=== PATIENT | female | born 1990 | race Caucasian/White ===

== ENCOUNTER 2023-10-23 08:45 | Emergency (ER) | payer BC, SELFPAY ==
[2023-10-23 08:47] VITALS: BP 118/83
--- NOTE | 2023-10-23 09:18 | ED.GENMED ---
History of Present Illness
<Chantal Verdugo PA-C - Last Filed: 10/23/23 11:40>
General
Chief Complaint: Dehydration Symptoms
Source: patient and significant other
Time Seen by Provider: 10/23/23 09:00
History of Present Illness
History of Present Illness:
32yoF with a history of hypothyroidism presenting with her for evaluation of vomiting and diarrhea. Symptoms started last night around midnight. 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 She started to feel unwell at the end of her shift and started vomiting after returning home. She has had persistent vomiting and diarrhea since last night. She estimates that she has vomited about 10x since her symptoms
began. She also reports abdominal cramping but denies any overt abdominal pain. She also reports feeling dehydrated including decreased urine output and muscle cramping. She believes she has food poisoning. She has not taken anything OTC for her
symptoms. She denies any fevers, hematemesis, hematochezia, chest pain, shortness of breath.
Review of Systems
<Chantal Verdugo PA-C - Last Filed: 10/23/23 11:40>
Review of Systems
Constitutional: Denies fever
Respiratory: Denies trouble breathing
Cardiac: Denies chest pain
ABD/GI: Reports nausea, vomiting and diarrhea
: Reports dark urine
Phy Exam
<Chantal Verdugo PA-C - Last Filed: 10/23/23 11:40>
General Physical Exam
General Presentation: well appearing and no apparent distress
General Skin: warm and dry
Cardiovascular Exam
Cardiovascular Exam: regular rate/rhythm
Pulmonary Exam
Pulmonary Exam: lungs clear and no respiratory distress
Gastrointestinal Exam
Gastrointestinal Exam: soft and tender (Mild epigastric tenderness. No guarding, rebound, or rigidity. )
Goodwin Coma Scale
Eye Opening: Spontaneous
Verbal Response: Oriented
Motor Response: Obeys Commands
GCS Total Score: 15
<Kendall Eagle MD - Last Filed: 10/23/23 09:56>
Kacey Coma Scale
GCS Total Score: 15
Course
<Chantal Verdugo PA-C - Last Filed: 10/23/23 11:40>
Orders/Labs/Results
Orders:
Orders
10/23/23 09:15
Famotidine [Pepcid] 20 mg IV NOW STA
Ondansetron Injectable [Zofran] 4 mg IV NOW STA
10/23/23 09:16
Test Result ONCE
10/23/23 09:17
0.9% Sodium Chloride 500 ml [Nss] 500 ml IV BOLUS
10/23/23 09:23
Basic Metabolic Panel Urgent
Complete Blood Count/With Diff Urgent
HCG, Urine Qualitative Screen Urgent
Date Specimen was Collected: 10/23/23
Time Specimen was Collected: 09:23
Lipase Urgent
10/23/23 09:39
Potassium Urgent
10/23/23 09:43
CDIFF [C difficile Antigen & Toxins] Urgent
CHARLES Source: Feces/Stool
Specimen Description:
Stool Culture Urgent
CHARLES Source: Feces/Stool
Specimen Description:
10/23/23 10:01
Add On- LAB Urgent
Tests Added?: hep cassy
10/23/23 11:10
Ketorolac [Toradol] 15 mg IV NOW STA
Abnormal Lab Results
10/23/23
09:23
MPV 11.9 H fL
(7.4-10.4)
Absolute Neuts (auto) 8.0 H 10^3/uL
(1.4-6.5)
Absolute Lymphs (auto) 0.1 L 10^3/uL
(1.2-3.4)
Neutrophils % 96.1 H %
(42.2-75.2)
Lymphocytes % 1.4 L %
(20.5-51.1)
BUN 27 H mg/dl
(7-17)
Glucose 146 H mg/dl
(70-99)
10/23/23 09:23
10/23/23 09:39
Vital Signs
Initial and Last Documented VS:
Initial Vital Signs
Temp Pulse Resp BP Pulse Ox
98.5 F 105 16 118/83 98
10/23/23 08:47 10/23/23 08:47 10/23/23 08:47 10/23/23 08:47 10/23/23 08:47
Last Documented Vital Signs
Temp Pulse Resp BP Pulse Ox
98.5 F 105 16 115/85 98
10/23/23 08:47 10/23/23 08:47 10/23/23 08:47 10/23/23 09:21 10/23/23 09:22
<Kendall Eagle MD - Last Filed: 10/23/23 09:56>
Orders/Labs/Results
Orders:
Orders
10/23/23 09:15
Famotidine [Pepcid] 20 mg IV NOW STA
Ondansetron Injectable [Zofran] 4 mg IV NOW STA
10/23/23 09:16
Test Result ONCE
10/23/23 09:17
0.9% Sodium Chloride 500 ml [Nss] 500 ml IV BOLUS
10/23/23 09:23
Basic Metabolic Panel Urgent
Complete Blood Count/With Diff Urgent
HCG, Urine Qualitative Screen Urgent
Date Specimen was Collected: 10/23/23
Time Specimen was Collected: 09:23
Lipase Urgent
10/23/23 09:39
Potassium Urgent
10/23/23 09:43
CDIFF [C difficile Antigen & Toxins] Urgent
CHARLES Source: Feces/Stool
Specimen Description:
Stool Culture Urgent
CHARLES Source: Feces/Stool
Specimen Description:
10/23/23 10:01
Add On- LAB Urgent
Tests Added?: hep cassy
10/23/23 11:10
Ketorolac [Toradol] 15 mg IV NOW STA
Abnormal Lab Results
10/23/23
09:23
MPV 11.9 H fL
(7.4-10.4)
Absolute Neuts (auto) 8.0 H 10^3/uL
(1.4-6.5)
Absolute Lymphs (auto) 0.1 L 10^3/uL
(1.2-3.4)
Neutrophils % 96.1 H %
(42.2-75.2)
Lymphocytes % 1.4 L %
(20.5-51.1)
BUN 27 H mg/dl
(7-17)
Glucose 146 H mg/dl
(70-99)
10/23/23 09:23
10/23/23 09:39
Vital Signs
Initial and Last Documented VS:
Initial Vital Signs
Temp Pulse Resp BP Pulse Ox
98.5 F 105 16 118/83 98
10/23/23 08:47 10/23/23 08:47 10/23/23 08:47 10/23/23 08:47 10/23/23 08:47
Last Documented Vital Signs
Temp Pulse Resp BP Pulse Ox
98.5 F 105 16 115/85 98
10/23/23 08:47 10/23/23 08:47 10/23/23 08:47 10/23/23 09:21 10/23/23 09:22
<Chantal Verdugo PA-C - Last Filed: 10/23/23 11:40>
MDM/Problems Addressed
Differential Diagnosis Includes:
32yoF here with vomiting and diarrhea that began last night after eating at a cafeteria. C/o muscle cramping and decreased UOP. HR 105, vitals otherwise normal. She is well appearing in no distress. Mild epigastric tenderness on exam. Exam otherwise
reassuring. Differential diagnosis includes but is not limited to: gastroenteritis, dehydration, SCOTT, electrolyte imbalance, doubt acute surgical pathology
Initial ED plan: Check abdominal labs, Upreg, and stool testing. IV Zofran, Pepcid, and fluid bolus for symptoms.
<Chantal Verdugo PA-C - Last Filed: 10/23/23 11:40>
*Critical Care Note
Total Time (30-74mins, 75-104mins- exclusive of procedures): Not Applicable
<Chantal Verdugo PA-C - Last Filed: 10/23/23 11:40>
Update Note
Update Note:
1110: Patient reassessed. She is feeling significantly improved. Tolerating ice chips. No vomiting or diarrhea since initial exam. She feels comfortable with discharge.
Labs reassuring including normal electrolytes and creatinine. Patient symptomatically improved with interventions and tolerating PO. Suspect viral gastroenteritis. Will prescribe Zofran for home. Supportive care discussed. Advised f/u with PCP and
ED return precautions discussed. Patient discharged in stable condition.
ED Attending Note
<Chantal Verdugo PA-C - Last Filed: 10/23/23 11:40>
-
Portions of this chart may have been created with voice recognition software.� Occasional wrong word or��sound alike� substitutions may have occurred due to the inherent limitations of voice recognition software.
<Kendall Eagle MD - Last Filed: 10/23/23 09:56>
ED Attending Note
Patient seen and examined by attending physician: Yes
I performed the substantive portion of visit, reviewed & personally made and approve the management plan that is documented in note by myself or CLEMENTE.: Yes
ED Attending Note:
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 Food from our cafeteria last evening. Shortly after developed nausea vomiting cramps and diarrhea. No blood or mucus in the diarrhea. No recent antibiotics. No unusual travel history. No one else
is ill at home.
On exam patient is nontoxic in no distress. Lungs clear and equal. Heart regular rate and rhythm. Abdomen soft. Nonsurgical. Minimal epigastric tenderness. No rebound or guarding no mass or hernia.
Symptoms all consistent with colitis/gastroenteritis. Possibly foodborne. Labs fluids nausea meds. No indication for radiologic testing. Nonsurgical abdomen. Stool culture and stool for C. difficile given her occupation.
Discharge Plan
Departure
Patient Disposition: Home (Routine Discharge)
Date of Disposition: 10/23/23
Time of Disposition: 11:12
Patient with high blood pressure during this ER visit?: No
Discharge Problem:
Nausea, vomiting and diarrhea
Instructions: Food poisoning
Prescriptions:
New
ondansetron 4 mg tablet,disintegrating
4 mg PO Q6 PRN (Reason: nausea and vomiting) Qty: 20 0RF
No Action
Vitamins Tablet
1 tab PO DAILY
Synthroid
75 mcg PO DAILY
acetaminophen 325 MG tablet
650 mg PO Q4HPRN PRN (Reason: mild pain) 0RF
sennosides-docusate sodium 1 TABLET tablet
1 tab PO DAILYPRN PRN (Reason: constipation) 0RF
levothyroxine 75 MCG tablet
75 mcg PO DAILY@0700 0RF
ibuprofen 600 MG tablet
600 mg PO Q6HPRN PRN (Reason: cramps) Qty: 30 0RF
simethicone [Gas Relief 80 (simethicone)] 80 MG tablet,chewable
80 mg PO TIDPRN PRN (Reason: flatulence) 0RF
Referrals:
Kendall Deal DO [Family Provider] -
Stand Alone Forms: Return to Work
Activity Restrictions/Additional Instructions:
Drink plenty of fluids. Advance diet slowly. BRAT diet is recommended (bananas, rice, applesauce, toast).
Please follow-up with your family doctor. Return to the ER with any worsening symptoms.
Interventions
Interventions:
*Risk Screen - Suicide Last Done: 10/23/23 09:33
*General Assessment Last Done: 10/23/23 09:33
*Neglect/Abuse Screening Last Done: 10/23/23 09:33
*ED COVID-19 Vaccine History Last Done: 10/23/23 08:47
ED- Cardiac Assessment Last Done: 10/23/23 09:33
ED- Neurological Assessment Last Done: 10/23/23 09:33
ED- Pulmonary Assessment Last Done: 10/23/23 09:33
Discharge Date and Time
Print Language: ESTONIAN
[2023-10-23 09:21] VITALS: BP 115/85
[2023-10-23] MEDS: PEPCID 20 MG IV (09:28)
[2023-10-23] MEDS: ZOFRAN 4 MG IV (09:28)
[2023-10-23] MEDS: NSS 500 IV (09:28)
[2023-10-23 09:40] LABS: % Basophils 0.2 % (0-2); % Immature Granulocytes 0.4 % (0-0.5); % Lymphocytes 1.4 % (20.5-51.1); % Monocytes 1.9 % (1.7-9.3); % Neutrophils 96.1 % (42.2-75.2); Absolute Lymphocytes 0.1 10^3/uL (1.2-3.4); Absolute Monocytes 0.2 10^3/uL (0.1-0.6); Hematocrit 44.7 % (37.0-47.0); Hemoglobin 15.5 g/dL (12.0-16.0); Mean Corp Hgb Conc. 34.7 g/dL (33.0-37.0); Mean Corpuscular Hgb 30.4 pg (27.0-31.0); Mean Corpuscular Volume 87.6 fL (81.0-99.0); Mean Platelet Volume 11.9 fL (7.4-10.4); Nucleated Red Blood Cells % 0 %; Platelet Count 241 10^3/uL (130-400); Red Cell Dist. Width 12.1 % (11.5-14.5); White Blood Cell Count 8.3 10^3/uL (4.8-10.8)
[2023-10-23 09:46] LABS: HCG, Urine Qualitative Screen Negative
[2023-10-23 10:00] VITALS: BP 126/92
[2023-10-23 10:13] LABS: Potassium 4.3 mmol/L (3.5-5.1)
[2023-10-23 10:16] LABS: Blood Urea Nitrogen 27 mg/dl (7-17); Calcium 9.5 mg/dl (8.4-10.2); Carbon Dioxide 24 mmol/L (22-30); Chloride 105 mmol/L (98-107); Glucose 146 mg/dl (70-99); Lipase 41 U/L (23-300); Sodium 140 mmol/L (135-145); eGFR > 60.00
[2023-10-23 11:00] VITALS: BP 144/84
[2023-10-23] MEDS: TORADOL 15 MG IV (11:41)
[2023-10-23 12:09] LABS: ALT (SGPT) 18 U/L (0-35); AST (SGOT) 26 U/L (14-36); Albumin 4.7 g/dl (3.5-5.0); Alkaline Phosphatase 56 U/L (38-126); Direct Bilirubin 0.4 mg/dl (0.0-0.4); Total Bilirubin 1.5 mg/dl (0.2-1.3); Total Protein 7.1 g/dl (6.3-8.2)
== END 2023-10-23 12:01 | disposition home or self-care (01) ==
LOC: EMR 08:45
PROVIDERS: Physician Assistant; EMERGENCY PHYSICIAN Emergency Medicine; FAMILY PHYSICIAN Family Medicine
DX: R11.2 Nausea with vomiting, unspecified (principal); R19.7 Diarrhea, unspecified; E86.0 Dehydration; E03.9 Hypothyroidism, unspecified
CPT/HCPCS: 99283; 96374; 96375; 96361; 80048; 80076; 81025; 83690; 84132; 85025; 96360

== ENCOUNTER → 2023-11-20 18:30 | Outpatient (REF) | payer BC, SELFPAY | LOC: CPAP 18:30 | PROVIDERS: ATTENDING PHYSICIAN Obstetrics & Gynecology | DX: Z01.419 Encounter for gynecological examination (general) (routine) without abnormal findings (principal); Z11.51 Encounter for screening for human papillomavirus (HPV) | CPT/HCPCS: 87624; G0123 ==

== ENCOUNTER → 2023-12-27 10:55 | Outpatient (REF) | payer BC, SELFPAY ==
[2023-12-27 16:19] LABS: ALT (SGPT) 14 U/L (0-35); AST (SGOT) 25 U/L (14-36); Albumin 4.7 g/dl (3.5-5.0); Alkaline Phosphatase 66 U/L (38-126); Blood Urea Nitrogen 15 mg/dl (7-17); Calcium 9.7 mg/dl (8.4-10.2); Carbon Dioxide 27 mmol/L (22-30); Chloride 103 mmol/L (98-107); Glucose 90 mg/dl (70-99); HDL Cholesterol 54 mg/dl; LDL Cholesterol, Calculated 104 mg/dl; Potassium 4.1 mmol/L (3.5-5.1); Sodium 141 mmol/L (135-145); Total Bilirubin 1.1 mg/dl (0.2-1.3); Total Cholesterol 165 mg/dl (50-199); Total Protein 7.1 g/dl (6.3-8.2); Triglyceride 39 mg/dl (10-149); Very Low Density Lipoprotein 7 mg/dl (0-30); eGFR > 60.00
[2023-12-27 16:49] LABS: TSH 1.69 uIU/ml (0.47-4.68)
[2023-12-27 17:01] LABS: % Basophils 0.7 % (0-2); % Eosinophils 3.6 % (0-6); % Immature Granulocytes 0.2 % (0-0.5); % Lymphocytes 32.5 % (20.5-51.1); % Monocytes 7.1 % (1.7-9.3); % Neutrophils 55.9 % (42.2-75.2); Absolute Eosinophils 0.2 10^3/uL (0-0.7); Absolute Lymphocytes 1.5 10^3/uL (1.2-3.4); Absolute Monocytes 0.3 10^3/uL (0.1-0.6); Absolute Neutrophils 2.5 10^3/uL (1.4-6.5); Hematocrit 39.9 % (37.0-47.0); Hemoglobin 13.7 g/dL (12.0-16.0); Mean Corp Hgb Conc. 34.3 g/dL (33.0-37.0); Mean Corpuscular Hgb 30.2 pg (27.0-31.0); Mean Corpuscular Volume 88.1 fL (81.0-99.0); Mean Platelet Volume 13.6 fL (7.4-10.4); Nucleated Red Blood Cells % 0 %; Platelet Count 217 10^3/uL (130-400); Red Blood Cell Count 4.53 10^6/uL (4.20-5.40); Red Cell Dist. Width 11.9 % (11.5-14.5); White Blood Cell Count 4.5 10^3/uL (4.8-10.8)
== END ==
LOC: HWLAB 10:55
PROVIDERS: ATTENDING PHYSICIAN Family Medicine
DX: Z00.00 Encounter for general adult medical examination without abnormal findings (principal); E03.9 Hypothyroidism, unspecified
CPT/HCPCS: 36415; 80053; 80061; 84443; 85025

== ENCOUNTER → 2025-01-21 09:43 | Outpatient (REF) | payer BC, SELFPAY ==
[2025-01-21 12:22] LABS: Hematocrit 41.6 % (37.0-47.0); Hemoglobin 14.3 g/dL (12.0-16.0); Mean Corp Hgb Conc. 34.4 g/dL (33.0-37.0); Mean Corpuscular Volume 87.9 fL (81.0-99.0); Nucleated Red Blood Cells % 0 %; Platelet Count 197 10^3/uL (130-400); Red Cell Dist. Width 11.9 % (11.5-14.5)
[2025-01-21 12:34] LABS: ALT (SGPT) 25 U/L (0-35); AST (SGOT) 26 U/L (14-36); Albumin 4.6 g/dl (3.5-5.0); Alkaline Phosphatase 58 U/L (38-126); Blood Urea Nitrogen 15 mg/dl (7-17); Calcium 9.2 mg/dl (8.4-10.2); Carbon Dioxide 24 mmol/L (22-30); Chloride 106 mmol/L (98-107); Glucose 93 mg/dl (70-99); HDL Cholesterol 67 mg/dl; LDL Cholesterol, Calculated 92 mg/dl; Potassium 4.4 mmol/L (3.5-5.1); Sodium 137 mmol/L (135-145); Total Protein 7.1 g/dl (6.3-8.2); Very Low Density Lipoprotein 7 mg/dl (0-30); eGFR > 60.00
[2025-01-21 12:59] LABS: TSH 2.42 uIU/ml (0.47-4.68)
== END ==
LOC: HWLAB 09:43
PROVIDERS: ATTENDING PHYSICIAN Family Medicine
DX: Z00.00 Encounter for general adult medical examination without abnormal findings (principal); E03.9 Hypothyroidism, unspecified
CPT/HCPCS: 36415; 80053; 80061; 84443; 85025